=== PATIENT | male | born 1945 | race Caucasian/White ===

== ENCOUNTER → 2021-09-17 | Outpatient (REF) | payer SELFPAY ==
[2021-09-17 10:15] LABS: Absolute Lymphocyte Count 1.29 X10^3/uL (0.83-4.51); Absolute Neutrophil Count 11.1 X10^3/uL (2.0-7.7); Basophil# 0.04 X10^3/uL; Basophil% 0.3 % (0-1); Eosinophil# 0.03 X10^3/uL; Eosinophils% 0.2 % (0-5); Hematocrit 36.7 % (40-54); Hemoglobin 11.6 g/dL (13.0-16.5); Lymphocyte # 1.29 X10^3/ul (0.83-4.51); Lymphocyte % 9.8 % (19-41); Mean Corp Hgb Conc 31.6 g/dL (32-36); Mean Corpuscular Hgb 26.7 pg (27.0-32.0); Mean Corpuscular Volume 84.4 fL (80-94); Mean Platelet Vol. 9.9 fl (6.2-12.0); Monocyte# 0.72 X10^3/uL; Monocyte% 5.5 % (0-10); NRBC Flagged by Analyzer 0 % (0-5); Neutrophil # 11.05 X10^3/uL (2.7-7.7); Neutrophil % 83.9 % (47-70); POSITIVE MORPHOLOGY YES; Platelet Count 312 K/mm3 (150-450); RBC Distribution Width CV 20.8 % (11.6-14.6); RBC Distribution Width SD 62.4 fl (35.1-43.9); Red Blood Count 4.35 M/mm3 (4.6-6.2); White Blood Count 13.2 K/mm3 (4.4-11.0)
[2021-09-17 10:19] LABS: Differential Indicated SCAN CRITERIA MET
[2021-09-17 10:28] LABS: Anion Gap 8 (5-15); BUN 20 mg/dL (7-18); BUN/Creat Ratio 26.6 RATIO (10-20); Chloride 98 mmol/L (98-107); Creatinine, Serum 0.75 mg/dL (0.70-1.30); EST Glomerular Filtration Rate 107 mL/min (>60); Est Glom Filt Rate - Afr Amer 130 mL/min (>60); Glucose 210 mg/dL (74-106); Magnesium 2.2 mg/dL (1.6-2.6); Potassium 4.2 mmol/L (3.5-5.1); Sodium Level 133 mmol/L (136-145)
[2021-09-17 10:30] LABS: Hemoglobin A1c 8.8 % (3.8-5.6)
[2021-09-17 10:55] LABS: Anisocytosis 1+
== END | disposition home or self-care (01) ==
LOC: OLS.SW500 05:00
PROVIDERS: PCP Family Medicine; Visit Provider Internal Medicine
DX: Z51.81 Encounter for therapeutic drug level monitoring (principal)
CPT/HCPCS: 36415; 80048; 83036; 83735; 83880; 85025

== ENCOUNTER → 2021-09-24 | Outpatient (REF) | payer MEDICARE, SELFPAY ==
[2021-09-24 09:02] LABS: Absolute Lymphocyte Count 1.14 X10^3/uL (0.83-4.51); Absolute Neutrophil Count 7.7 X10^3/uL (2.0-7.7); Basophil# 0.02 X10^3/uL; Basophil% 0.2 % (0-1); Eosinophil# 0.05 X10^3/uL; Eosinophils% 0.5 % (0-5); Hematocrit 37.4 % (40-54); Hemoglobin 11.7 g/dL (13.0-16.5); Lymphocyte # 1.14 X10^3/ul (0.83-4.51); Lymphocyte % 11.8 % (19-41); Mean Corp Hgb Conc 31.3 g/dL (32-36); Mean Corpuscular Hgb 26.5 pg (27.0-32.0); Mean Corpuscular Volume 84.8 fL (80-94); Monocyte# 0.69 X10^3/uL; Monocyte% 7.1 % (0-10); NRBC Flagged by Analyzer 0 % (0-5); Neutrophil # 7.74 X10^3/uL (2.7-7.7); Neutrophil % 80.1 % (47-70); POSITIVE MORPHOLOGY YES; Platelet Count 305 K/mm3 (150-450); RBC Distribution Width CV 20.3 % (11.6-14.6); RBC Distribution Width SD 61.8 fl (35.1-43.9); Red Blood Count 4.41 M/mm3 (4.6-6.2); White Blood Count 9.7 K/mm3 (4.4-11.0)
[2021-09-24 09:10] LABS: Anion Gap 7 (5-15); BUN 21 mg/dL (7-18); BUN/Creat Ratio 27.4 RATIO (10-20); Calcium,Total 8.4 mg/dL (8.5-10.1); Chloride 96 mmol/L (98-107); Creatinine, Serum 0.77 mg/dL (0.70-1.30); EST Glomerular Filtration Rate 105 mL/min (>60); Est Glom Filt Rate - Afr Amer 127 mL/min (>60); Glucose 241 mg/dL (74-106); Potassium 4.6 mmol/L (3.5-5.1); Sodium Level 130 mmol/L (136-145)
[2021-09-24 09:36] LABS: Hemoglobin A1c 9.1 % (3.8-5.6)
[2021-09-24 09:43] LABS: Differential Indicated SCAN CRITERIA MET
[2021-09-24 09:44] LABS: Anisocytosis 2+
[2021-09-25 10:58] LABS: MG Sendout 1.9 mg/dL (1.6-2.3)
== END | disposition home or self-care (01) ==
LOC: OLS.SW500 05:00
PROVIDERS: PCP Family Medicine; Referring Provider Internal Medicine; Visit Provider Internal Medicine
DX: Z51.81 Encounter for therapeutic drug level monitoring (principal); Z79.899 Other long term (current) drug therapy
CPT/HCPCS: 36415; 80048; 83036; 83735; 85025

== ENCOUNTER 2021-09-28 15:34 | Emergency (ER) | payer MEDICARE, SELFPAY ==
[2021-09-28] VITALS (13 sets, daily range): BP systolic 78–105; BP diastolic 49–78; PULSE 78–108; RESP 16–33; TEMP 36.4–37.2; O2SAT 95–98; BMI 32.8
--- NOTE | 2021-09-28 15:58 | EKG12_ITS ---
Test Reason : SOB Blood Pressure : / mmHG Vent. Rate : 099 BPM Atrial Rate : 099 BPM P-R Int : 164 ms QRS Dur : 086 ms QT Int : 344 ms P-R-T Axes : 024 082 228 degrees QTc Int : 441 ms Normal sinus rhythm Anteroseptal infarct , age undetermined Abnormal ECG Confirmed by EVELYN NJ, ELIZABTEH ([id number]), video editor RADAMES ARRIETA ([id number]) on 09/30/2021 12:52:31 PM Referred By: EUGENIO Confirmed By:ELIZABETH RIVAS MD
--- NOTE | 2021-09-28 16:00 | EDS_ITS ---
HPI History of Present Illness Chief Complaint: Shortness of Breath Informant: patient Narrative Narrative: Patient sent in from local ECF secondary to shortness of breath. Patient was discharged from a [facility] to their facility approximately 2 weeks ago. He states he has had problems with shortness of breath with exertion but today seemed to be short of breath with rest. He reports occasional chest pain when he gets short of breath. I was able to review his discharge summary from [facility]. It appears that he was admitted there with an NSTEMI, DKA, pneumonia, and found to have a right lung mass with cavitary lesion. He was discharged on Augmentin and is supposed to follow-up for a lung biopsy. [facility] Medical History Atrial fibrillation Cardiomyopathy Diabetes Hyperlipidemia Hypertension Non-ST elevation MT (NSTEMI) SVT (supraventricular tachycardia) Home Medications aspirin 81 mg PO DAILY 09/28/21 [History Last Taken Unknown] ferrous sulfate [FerrouSul] 325 mg PO BID 09/28/21 [History Last Taken Unknown] furosemide [Lasix] 40 mg PO BID 09/28/21 [History Last Taken Unknown] insulin glargine [Basaglar KwikPen U-100 Insulin] 10 unit SUBCUT DAILY 09/28/21 [History Last Taken Unknown] insulin lispro [Humalog KwikPen Insulin] See Rx Instructions .ROUTE .COMPLEX 09/28/21 [History Last Taken Unknown] ipratropium-albuterol 3 ml INHALATION Q4H PRN 09/28/21 [History Last Taken Unknown] linagliptin [Tradjenta] 5 mg PO DAILY 09/28/21 [History Last Taken Unknown] losartan 25 mg PO DAILY 09/28/21 [History Last Taken Unknown] metformin 1,000 mg PO BID 09/28/21 [History Last Taken Unknown] metoprolol succinate 50 mg PO BID 09/28/21 [History Last Taken Unknown] mirtazapine 15 mg PO QHS 09/28/21 [History Last Taken Unknown] multivitamin with iron-mineral [CentaVite] 15 ml PO DAILY 09/28/21 [History Last Taken Unknown] polyethylene glycol 3350 [Miralax] 17 g PO DAILY 09/28/21 [History Last Taken Unknown] potassium chloride [K-Dur] 20 meq PO DAILY 09/28/21 [History Last Taken Unknown] pravastatin 40 mg PO QHS 09/28/21 [History Last Taken Unknown] sennosides [senna] 8.6 mg PO DAILY 09/28/21 [History Last Taken Unknown] spironolactone 25 mg PO DAILY 09/28/21 [History Last Taken Unknown] Allergy/AdvReac Type Severity Reaction Status Date / Time No Known Allergies Allergy Verified 09/28/21 15:44 Surgical History H/O shoulder surgery History of ankle surgery Social History Smoking Status: Former smoker ROS ROS ED Constitutional Constitutional ED: Denies chills or fever(s) Eyes Eyes: Denies blurry vision ENT ENT ED: Denies rhinorrhea or sore throat Cardiovascular Cardiovascular: Reports chest pain Respiratory/Chest Respiratory/Chest: Reports cough and dyspnea Gastrointestinal Gastrointestinal: Denies abdominal pain or vomiting Genitourinary Genitourinary ED: Denies dysuria Musculoskeletal Musculoskeletal: Denies arthralgias or myalgias Integumentary Denies rash Neurologic Neurologic: Reports weakness Endocrine Endocrinology: Denies polydipsia or polyuria Allergic/Immunologic Allergic/Immunologic ED: Denies urticaria EXAM Physical Exam Const Vital Signs: 09/28/21 15:36 09/28/21 15:39 09/28/21 16:00 Temperature 97.5 F L 97.5 F L Temperature Source Oral Oral Pulse Rate 108 H 108 H 102 H Respiratory Rate 33 H 33 H 26 H Respiratory Effort Short of Breath Respiratory Depth Shallow Respiratory Pattern Tachypnea Blood Pressure 91/63 91/63 84/51 L Blood Pressure Mean 72 72 62 Pulse Ox 96 96 97 Oxygen Delivery Method Nasal Cannula Nasal Cannula Oxygen Flow Rate (L/min) 2 2 09/28/21 16:15 09/28/21 16:30 09/28/21 16:45 Temperature Temperature Source Pulse Rate 99 100 104 H Respiratory Rate 23 H 24 H 22 H Respiratory Effort Respiratory Depth Respiratory Pattern Blood Pressure 78/49 L 91/54 L 97/71 Blood Pressure Mean 58 66 79 Pulse Ox 97 95 96 Oxygen Delivery Method Oxygen Flow Rate (L/min) 09/28/21 17:00 09/28/21 17:12 09/28/21 18:28 Temperature 97.6 F L 97.8 F Temperature Source Oral Oral Pulse Rate 103 H 102 H 96 Respiratory Rate 23 H 28 H 25 H Respiratory Effort Respiratory Depth Respiratory Pattern Blood Pressure 87/59 L 97/71 93/62 Blood Pressure Mean 68 79 72 Pulse Ox 97 96 96 Oxygen Delivery Method Nasal Cannula Nasal Cannula Oxygen Flow Rate (L/min) 2 2 09/28/21 19:00 09/28/21 20:00 Temperature 98.9 F 98.7 F Temperature Source Temporal Temporal Pulse Rate 97 97 Respiratory Rate 20 H 18 Respiratory Effort Respiratory Depth Respiratory Pattern Blood Pressure 105/73 99/71 Blood Pressure Mean 83 80 Pulse Ox 96 97 Oxygen Delivery Method Nasal Cannula Nasal Cannula Oxygen Flow Rate (L/min) 3 3 Positive cachectic General Appearance ED: cachectic Nutritional Appearance: cachectic Eyes PERRL and EOMs intact bilaterally Neck supple Chest Wall inspection of chest normal and palpation of chest normal Resp Resp Narrative: Lung sounds mildly decreased at the bases. Cardio Rate: tachycardic GI non-tender Palpation: soft Neuro Neuro Narrative: No focal neurologic deficits. Sensorium / Orientation: alert Psych mental status grossly normal Skin no rashes or lesions noted MDM MDM MDM Narrative Medical decision making narrative: I was able to review the recent discharge summary from [facility]. Patient has been treated for NSTEMI, DKA, right lung mass with possible postobstructive pneumonia. Lab work, EKG, CTA chest obtained. Lab Data Attestation: I reviewed the patient's lab results. Labs: Laboratory Results - last 24 hr 09/28/21 09/28/21 09/28/21 15:40 15:40 15:40 WBC 18.6 H RBC 4.45 L Hgb 12.3 L Hct 37.4 L MCV 84.0 MCH 27.6 MCHC 32.9 D RDW Std Deviation 58.8 H RDW Coeff of Ana 19.3 H Plt Count 363 MPV 9.3 Immature Gran % (Auto) 0.800 Neut % (Auto) 88.9 H Lymph % (Auto) 3.8 L Webster % (Auto) 6.3 Eos % (Auto) 0.0 Baso % (Auto) 0.2 Absolute Neuts (auto) 16.6 H Absolute Lymphs (auto) 0.70 L Nucleated RBC % 0 D-Dimer Quant (PE/DVT) 1.91 H* Sodium 131 L Potassium 4.9 Chloride 95 L Carbon Dioxide 24.0 Anion Gap 12 BUN 26 H Creatinine 1.20 Estim Creat Clear Calc 46.52 Est GFR (MDRD) Af Amer 76 Est GFR (MDRD) Non-Af 62 BUN/Creatinine Ratio 21.7 H Glucose 217 H Lactic Acid Calcium 8.8 Total Bilirubin 0.70 Direct Bilirubin 0.45 H AST 96 H ALT 68 H Alkaline Phosphatase 177 H Troponin I High Sens 39 Total Protein 7.3 Albumin 2.6 L Globulin 4.7 H 09/28/21 17:16 WBC RBC Hgb Hct MCV MCH MCHC RDW Std Deviation RDW Coeff of Ana Plt Count MPV Immature Gran % (Auto) Neut % (Auto) Lymph % (Auto) Webster % (Auto) Eos % (Auto) Baso % (Auto) Absolute Neuts (auto) Absolute Lymphs (auto) Nucleated RBC % D-Dimer Quant (PE/DVT) Sodium Potassium Chloride Carbon Dioxide Anion Gap BUN Creatinine Estim Creat Clear Calc Est GFR (MDRD) Af Amer Est GFR (MDRD) Non-Af BUN/Creatinine Ratio Glucose Lactic Acid 6.9 H* Calcium Total Bilirubin Direct Bilirubin AST ALT Alkaline Phosphatase Troponin I High Sens Total Protein Albumin Globulin Radiography Diagnostic Testing: Clinical Impression(s) from Imaging Studies Chest CTA 09/28/21 17:25 IMPRESSION: 1. Right lower lobe mass versus abscess. 2. Spiculated left lower lobe nodule suspicious for malignancy. 3. Bilateral pleural effusions. Electronically Signed: Erica Castro MD at 20:18 EST Reading Location ID and State: Veronika Mcmahon MD Tel , Service support , ADDENDUM: 09/28/218 IMPRESSION: 1. Right lower lobe mass versus abscess. 2. Spiculated left lower lobe nodule suspicious for malignancy. 3. Bilateral pleural effusions. N.B. : KWAME Lorenzana, confirmed on 09/28/2021 20:57:30 (ET) that the healthcare facility has received the radiology report. Electronically Signed: Erica Castro MD at 20:18 EST Reading Location ID and State: Veronika Mcmahon MD Tel , Service support , EKG Initial EKG: Attestation: I personally reviewed and interpreted this EKG as follows: Interpretation: Sinus Rhythm (Sinus at 99. Inferior lateral T wave flatten ing. No significant ST change.) Treatment and Re-Evaluation Comments:: Patient is initially given 500 cc IV fluid bolus. Lab work reviewed and does reveal elevated white count at 18.6 with left shift of 89% neutrophils. D-dimer is 1.9. Chemistry studies reveal BUN and creatinine of 26 and 1.2. Troponin is 39. Lactic acid is 6.9. CTA of the chest reveals right lower lobe mass versus abscess. There is a spiculated left lower lobe nodule suspicious for malignancy. Bilateral pleural effusions are noted. Patient has been given a liter and a half IV fluid bolus. He has been given Zosyn and vancomycin. I spoke with our hospitalist here who reviewed the case with pulmonary/ICU. Due to concern for lung abscess and possible empyema with need for CT surgery it was recommended he be transferred back to [facility]. Repeat lactic acid has been drawn and pending at this time. Patient is accepted by medicine at [facility]. Discharge Plan Triage Chief Complaint: Shortness of Breath ED Provider: Jo Donaldson Dx/Rx/DC Orders Clinical Impression: Abscess of lung Prescriptions: No Action furosemide [Lasix] 40 mg Tablet 40 mg PO BID RF: 0 sennosides [senna] 8.6 mg Tablet 8.6 mg PO DAILY RF: 0 polyethylene glycol 3350 [Miralax] 17 gram Powder In Packet 17 g PO DAILY RF: 0 pravastatin 40 mg Tablet 40 mg PO QHS RF: 0 metoprolol succinate 50 mg Tablet Extended Release 24 Hr 50 mg PO BID RF: 0 potassium chloride [K-Dur] 20 mEq Tablet,Er Particles/Crystals 20 meq PO DAILY RF: 0 ipratropium-albuterol 0.5 mg-3 mg(2.5 mg base)/3 mL Solution For Nebulization 3 ml INHALATION Q4H PRN (Reason: Shortness Of Breath) RF: 0 spironolactone 25 mg Tablet 25 mg PO DAILY RF: 0 ferrous sulfate [FerrouSul] 325 mg (65 mg iron) Tablet 325 mg PO BID RF: 0 metformin 1,000 mg Tablet 1,000 mg PO BID RF: 0 losartan 25 mg Tablet 25 mg PO DAILY RF: 0 aspirin 81 mg Tablet 81 mg PO DAILY RF: 0 mirtazapine 15 mg Tablet 15 mg PO QHS RF: 0 CentaVite Liquid 15 ml PO DAILY RF: 0 Basaglar KwikPen U-100 Insulin 100 unit/mL (3 mL) Insulin Pen 10 unit SUBCUT DAILY RF: 0 Tradjenta 5 mg Tablet 5 mg PO DAILY RF: 0 insulin lispro [Humalog KwikPen Insulin] 100 unit/mL Insulin Pen See Rx Instructions .ROUTE .COMPLEX RF: 0 Primary Care Provider: Kashmir Schneider Referrals: Kashmir Schneider MD [Primary Care Provider] - Disposition Disposition: Acute Care Hospital Discharge Location: [facility]
[2021-09-28 16:36] LABS: Absolute Neutrophil Count 16.6 X10^3/uL (2.0-7.7); Basophil# 0.03 X10^3/uL; Basophil% 0.2 % (0-1); Hematocrit 37.4 % (40-54); Hemoglobin 12.3 g/dL (13.0-16.5); Lymphocyte % 3.8 % (19-41); Mean Corp Hgb Conc 32.9 g/dL (32-36); Mean Corpuscular Hgb 27.6 pg (27.0-32.0); Mean Platelet Vol. 9.3 fl (6.2-12.0); Monocyte# 1.17 X10^3/uL; Monocyte% 6.3 % (0-10); NRBC Flagged by Analyzer 0 % (0-5); Neutrophil # 16.55 X10^3/uL (2.7-7.7); Neutrophil % 88.9 % (47-70); Platelet Count 363 K/mm3 (150-450); RBC Distribution Width CV 19.3 % (11.6-14.6); RBC Distribution Width SD 58.8 fl (35.1-43.9); Red Blood Count 4.45 M/mm3 (4.6-6.2); White Blood Count 18.6 K/mm3 (4.4-11.0)
[2021-09-28 16:42] LABS: D-Dimer Quantitative (DVT/PE) 1.91 FEU/ug/m (0.27-0.49)
[2021-09-28 16:44] LABS: AST(SGOT) 96 U/L (15-37); Alanine Aminotransfer ALT/SGPT 68 U/L (16-61); Albumin, Serum 2.6 g/dL (3.2-5.0); Alkaline Phosphatase 177 U/L (45-117); Anion Gap 12 (5-15); BUN 26 mg/dL (7-18); BUN/Creat Ratio 21.7 RATIO (10-20); Bilirubin, Direct 0.45 mg/dL (0.00-0.30); Calcium,Total 8.8 mg/dL (8.5-10.1); Chloride 95 mmol/L (98-107); EST Glomerular Filtration Rate 62 mL/min (>60); Est Glom Filt Rate - Afr Amer 76 mL/min (>60); Estimated Creatinine Clearance 46.52 ml/min; Globulin 4.7 g/dL (2.2-4.2); Glucose 217 mg/dL (74-106); Potassium 4.9 mmol/L (3.5-5.1); Protein, Total 7.3 g/dL (6.4-8.2); Sodium Level 131 mmol/L (136-145); Troponin-I HS 39 pg/mL (3.0-78.0)
--- NOTE | 2021-09-28 17:25 | CT_ITS ---
ACR Level 3 findings have been noted. An addendum which confirms receipt of the report will follow. EXAM: CT ANGIOGRAPHY CHEST WITHOUT AND WITH INTRAVENOUS CONTRAST CLINICAL INDICATION: pulmonary embolism TECHNIQUE: Helically acquired angiography images were obtained of the chest without and with intravenous contrast. This CT exam was performed using one or more of the following dose reduction techniques: automated exposure control, adjustment of the mA and/or kV according to patient size, and/or use of iterative reconstruction technique. This report was created using [employer] report generation technology. MIP reconstructed images were created and reviewed. CONTRAST: IV 100mL [id number] COMPARISON: 03/24/2017. FINDINGS: PULMONARY ARTERIES: Unremarkable. Normal in caliber. No evidence of pulmonary embolism. AORTA: Unremarkable. Normal in caliber. No evidence of dissection. GREAT VESSELS OF AORTIC ARCH: Unremarkable. Normal in caliber. No evidence of dissection. LUNGS AND PLEURAL SPACES: Moderate bilateral pleural effusions. 1.6 x 1.1 cm spiculated nodule in the left lower lobe concerning for malignancy. 5.9 cm hypodense mass in the right lower lobe suspicious for malignancy versus abscess. The lesion lies 4.5 cm from the pleural surface, but is amenable to bronchoscopic evaluation via the bronchus intermedius. No pneumothorax. HEART: Unremarkable. Heart size is normal. No pericardial effusion. No signs of right heart strain, ratio of right ventricle to left ventricle measures less than 1. MEDIASTINUM: Unremarkable. No mediastinal or hilar adenopathy. Esophagus is unremarkable. No hiatal hernia. THYROID: Unremarkable. No thyroid lesions. BONES/JOINTS: Unremarkable. No suspicious lytic or blastic abnormality. CT/CTA Chest W/WO Contrast IMPRESSION: 1. Right lower lobe mass versus abscess. 2. Spiculated left lower lobe nodule suspicious for malignancy. 3. Bilateral pleural effusions. Electronically Signed: Erica Castro MD at 20:18 EST Reading Location ID and State: [id number] / Tel , Service support ,
[2021-09-28 18:29] LABS: Lactic Acid 6.9 mmol/L (0.4-1.9)
--- NOTE | 2021-09-28 18:59 | ED.RN ---
critical result received 6.9 lactate. aware.
[2021-09-28] MEDS: 0.9% Normal Saline 1,000 ML 999 ML IV (19:22)
[2021-09-28 21:23] LABS: Reflex Lactate? Y
[2021-09-28 21:24] LABS: Lactic Acid 2.7 mmol/L (0.4-1.9)
[2021-09-29 00:51] LABS: Reflex Lactate? Y
== END 2021-09-28 22:56 | disposition short-term general hospital (02) ==
PROVIDERS: Emergency Provider Emergency Medicine; PCP Family Medicine; Visit Provider Emergency Medicine
DX: J85.2 Abscess of lung without pneumonia (principal); I42.9 Cardiomyopathy, unspecified; I48.91 Unspecified atrial fibrillation; E11.9 Type 2 diabetes mellitus without complications; Z79.4 Long term (current) use of insulin; E78.5 Hyperlipidemia, unspecified; Z87.891 Personal history of nicotine dependence; I10 Essential (primary) hypertension; I25.2 Old myocardial infarction; Z79.82 Long term (current) use of aspirin; Z79.899 Other long term (current) drug therapy
CPT/HCPCS: 71275; 80048; 80076; 83605; 84484; 85025; 85379; 87426; 93005; 96361; 96365; 96368; 99285; J7030; J7040; Q9967; A4216